=== PATIENT | female | born 1995 | race African-American/Black ===

== ENCOUNTER 2021-08-29 12:36 | Emergency (ER) | payer OTHER ==
[~2021-08-29] VITALS: Ht 162.6 cm; Wt 55.4 kg
[2021-08-29 12:37] VITALS: BP 123/84
[2021-08-29] MEDS ORDERED: LIDOCAINE VISCOUS 2% SOLN 15ML UDC SSP ONE (16:35)
[2021-08-29] MEDS ORDERED: KETOROLAC 60MG 2ML VIAL IM ONE (16:35)
[2021-08-29] MEDS ORDERED: CLEO300C2 PO ×2 (16:38→16:43)
[2021-08-29] MEDS ORDERED: LIDVISCBTL SSP ×2 (16:38→16:43)
[2021-08-29] MEDS ORDERED: KETO10TAB PO ×2 (16:38→16:43)
== END 2021-08-29 16:49 | disposition home or self-care (01) ==
LOC: M ED 12:36
DX: K04.7 Periapical abscess without sinus (principal); K02.9 Dental caries, unspecified; Z88.0 Allergy status to penicillin; Z77.098 Contact with and (suspected) exposure to other hazardous, chiefly nonmedicinal, chemicals
CPT/HCPCS: 96372; 99282; J1885